=== PATIENT | female | born 1990 | race Caucasian/White ===

== ENCOUNTER 2017-07-30 01:41 | Inpatient (IN) | payer MEDICAID ==
[~2017-07-30] VITALS: Ht 157.5 cm; Wt 88.2 kg
[2017-07-30] MEDS ORDERED: OXYTOCIN 30U/ 0.9% NaCL 500ML 500 ML IV ONE (01:51)
[2017-07-30] MEDS ORDERED: AMPICILLIN 2 GM in SODIUM CHLORIDE 0.9% 100 ML IVPB STA (01:51)
[2017-07-30] MEDS ORDERED: NEWBORN KIT ONE (01:53)
[2017-07-30] MEDS ORDERED: OXYTOCIN 30U/ 0.9% NaCL 500ML 500 ML ONE ×2 (01:53→07:56)
[2017-07-30] MEDS ORDERED: LIDOCAINE 1%, 20ML ONE (01:53)
[2017-07-30] MEDS ORDERED: MISOPROSTOL 200 MCG TABLET ONE (01:53)
[2017-07-30] MEDS: LACTATED RINGERS 1,000 ML IV SCH ×5 (01:57→18:34)
[2017-07-30 02:00] VITALS: BP 124/74
[2017-07-30] MEDS ORDERED: FENTANYL PF 100 MCG/2ML IV PRN (02:00)
[2017-07-30] MEDS ORDERED: ONDANSETRON 2MG/ML, 2ML IVPush PRN (02:00)
[2017-07-30] MEDS ORDERED: CALCIUM CARBONATE 500 MG TAB.CHEW PO PRN ×2 (02:00→06:00)
[2017-07-30] MEDS ORDERED: FENTANYL PF 100 MCG/2ML IVPush PRN (02:00)
[2017-07-30 02:14] LABS: BASOPHILS # (AUTO) 0.12 x10^3/uL (0-0.1); BASOPHILS % (AUTO) 1 % (0-1); EOSINOPHILS # (AUTO) 0.11 x10^3/uL (0-0.4); EOSINOPHILS % (AUTO) 1 % (1-7); LYMPHOCYTES # (AUTO) 2.49 x10^3/uL (1-3.4); LYMPHOCYTES % (AUTO) 25 % (22-44); MD NO; MEAN CORPUSCULAR HEMOGLOBIN 27.1 pg (27.0-34.8); MEAN CORPUSCULAR HGB CONC 33.1 g/dL (32.4-35.8); MEAN CORPUSCULAR VOLUME 82.1 fL (80-100); MEAN PLATELET VOLUME 10.1 fL (7.4-10.4); MONOCYTES # (AUTO) 0.46 x10^3/uL (0.2-0.8); MONOCYTES % (AUTO) 5 % (2-9); NEUTROPHILS # (AUTO) 6.68 x10^3/uL (1.8-6.8); NEUTROPHILS % (AUTO) 68 % (42-75); PLATELET COUNT 173 x10^3/uL (130-400); RED BLOOD COUNT 4.42 x10^6/uL (3.82-5.3); RED CELL DISTRIBUTION WIDTH 14.3 % (9.6-15.2)
[2017-07-30] MEDS ORDERED: FENTANYL/BUPIV./NS/PF 250 ML EPIDCONT SCH (02:34)
[2017-07-30] MEDS ORDERED: FENTANYL/BUPIV./NS/PF 250 ML EPIDCONT ONE (02:36)
[2017-07-30] MEDS ORDERED: BUPIVACAINE/PF 0.25% ONE (02:36)
[2017-07-30] MEDS ORDERED: EPHEDRINE 50 MG/ML, 1ML IVPush PRN (03:00)
[2017-07-30] MEDS ORDERED: NALOXONE 0.4 MG/ML, 1ML IVPush PRN (03:00)
[2017-07-30] MEDS ORDERED: LACTATED RINGERS 1,000 ML IVBOLUS PRN (03:00)
[2017-07-30] MEDS: OXYTOCIN 30U/ 0.9% NaCL 500ML 500 ML IV SCH ×6 (05:45→15:45)
[2017-07-30] MEDS ORDERED: OXYTOCIN 10 UNITS/ML, 1ML IM PRN (06:00)
[2017-07-30] MEDS ORDERED: OXYcodone/APAP 5/325MG TABLET PO PRN ×2 (06:00)
[2017-07-30] MEDS ORDERED: METHYLERGONOVINE 0.2 MG/ML IM PRN (06:00)
[2017-07-30] MEDS ORDERED: ONDANSETRON 2MG/ML, 2ML IV PRN (06:00)
[2017-07-30] MEDS ORDERED: MAGNESIUM HYDROXIDE 8%, 30ML UDC PO PRN (06:00)
[2017-07-30] MEDS ORDERED: ACETAMINOPHEN 325 MG TABLET PO PRN ×2 (06:00)
[2017-07-30] MEDS: AMPICILLIN 1 GM in SODIUM CHLORIDE 0.9% 50 ML IV SCH ×2 (06:00→10:00)
[2017-07-30] MEDS: IBUPROFEN 800 MG TABLET PO PRN ×2 (07:00→13:09)
[2017-07-30] MEDS: D5%-LACTATED RINGERS 1,000 ML IV SCH ×2 (07:00→09:51)
[2017-07-30] MEDS ORDERED: IBUPROFEN 600 MG TABLET ONE (07:00)
[2017-07-30 08:35] VITALS: BP 122/74
[2017-07-30] MEDS: PRENATAL VIT/IRON/FA 1 EACH TABLET PO SCH (09:00)
[2017-07-30 12:30] VITALS: BP 122/72
[2017-07-30 16:12] VITALS: BP 111/73
[2017-07-30 20:00] VITALS: BP 114/79
[2017-07-30] MEDS: DOCUSATE 100 MG CAPSULE PO PRN (21:43)
[2017-07-31] MEDS: IBUPROFEN 800 MG TABLET PO PRN ×3 (00:46→19:20)
[2017-07-31 00:48] VITALS: BP 121/75
[2017-07-31] MEDS: OXYTOCIN 30U/ 0.9% NaCL 500ML 500 ML IV SCH ×4 (01:45→23:10)
[2017-07-31] MEDS: LACTATED RINGERS 1,000 ML IV SCH ×3 (02:34→18:34)
[2017-07-31 07:00] VITALS: BP 114/77
[2017-07-31] MEDS: PRENATAL VIT/IRON/FA 1 EACH TABLET PO SCH (09:13)
[2017-07-31] MEDS: DOCUSATE 100 MG CAPSULE PO PRN ×2 (09:13→20:30)
[2017-07-31 16:10] LABS: BASOPHILS # (AUTO) 0.04 x10^3/uL (0-0.1); BASOPHILS % (AUTO) 0 % (0-1); EOSINOPHILS # (AUTO) 0.16 x10^3/uL (0-0.4); EOSINOPHILS % (AUTO) 2 % (1-7); LYMPHOCYTES # (AUTO) 2.15 x10^3/uL (1-3.4); LYMPHOCYTES % (AUTO) 24 % (22-44); MD NO; MEAN CORPUSCULAR HEMOGLOBIN 26.6 pg (27.0-34.8); MEAN CORPUSCULAR HGB CONC 32.5 g/dL (32.4-35.8); MEAN CORPUSCULAR VOLUME 81.9 fL (80-100); MEAN PLATELET VOLUME 9.9 fL (7.4-10.4); MONOCYTES # (AUTO) 0.55 x10^3/uL (0.2-0.8); MONOCYTES % (AUTO) 6 % (2-9); NEUTROPHILS # (AUTO) 6.18 x10^3/uL (1.8-6.8); NEUTROPHILS % (AUTO) 68 % (42-75); PLATELET COUNT 192 x10^3/uL (130-400); RED BLOOD COUNT 4.56 x10^6/uL (3.82-5.3); RED CELL DISTRIBUTION WIDTH 14.3 % (9.6-15.2)
[2017-07-31 19:33] VITALS: BP 118/73
[2017-08-01] MEDS: LACTATED RINGERS 1,000 ML IV SCH ×2 (02:34→03:12)
[2017-08-01 09:30] VITALS: BP 114/78
[2017-08-01] MEDS: DOCUSATE 100 MG CAPSULE PO PRN (09:41)
[2017-08-01] MEDS: PRENATAL VIT/IRON/FA 1 EACH TABLET PO SCH (09:41)
[2017-08-01] MEDS: IBUPROFEN 800 MG TABLET PO PRN (09:41)
[2017-08-01] MEDS ORDERED: IBUP-1223 PO (12:19)
[2017-08-01] MEDS ORDERED: OXYC-302 PO (12:20)
== END 2017-08-01 15:25 | disposition home or self-care (01) | DRG 775 ==
LOC: LDOP 01:41 → LDIP 01:56 → 2NW 08:14
PROVIDERS: ADMIT Obstetrics & Gynecology; ATTEND Obstetrics & Gynecology
PROC: 10E0XZZ Delivery of Products of Conception, External Approach (ICD-10-PCS; principal; 2017-07-30)
PROC: 10907ZC Drainage of Amniotic Fluid, Therapeutic from Products of Conception, Via Natural or Artificial Opening (ICD-10-PCS; 2017-07-30)
PROC: 0HQ9XZZ Repair Perineum Skin, External Approach (ICD-10-PCS; 2017-07-30)
PROC: 3E0R3BZ Introduction of Anesthetic Agent into Spinal Canal, Percutaneous Approach (ICD-10-PCS; 2017-07-30)
PROC: 00HU33Z Insertion of Infusion Device into Spinal Canal, Percutaneous Approach (ICD-10-PCS; 2017-07-30)
DX: O99.824 Streptococcus B carrier state complicating childbirth (principal); Z37.0 Single live birth; O70.0 First degree perineal laceration during delivery; Z3A.38 38 weeks gestation of pregnancy
CPT/HCPCS: 36415; 85025; 86850; 86900; J0290; J2590; J3010; J7120; J7121